=== PATIENT | female | born 1935 | race Caucasian/White ===

== ENCOUNTER 2020-04-17 09:18 | Observation (INO) | payer MEDICARE, SELFPAY ==
[2020-04-17] VITALS (12 sets, daily range): BP systolic 124–185; BP diastolic 45–64; PULSE 58–65; RESP 16–20; TEMP 36.8–37.9; O2SAT 92–97; BMI 24.1
--- NOTE | ~2020-04-17 | CT_ITS ---
EXAMINATION: CT abdomen pelvis wo con DATE: 04/17/2020 12:06 INDICATION: Abdominal pain and vomiting TECHNIQUE: Computed tomography (CT) of the abdomen and pelvis was performed without intravenous contr ast. The dose-length product (DLP) was 319.28 mGy-cm. Automated exposure control and iterative recons truction technique were employed. COMPARISON: 11/01/2015 FINDINGS: There are patchy opacities of the visualized lung bases. The heart size is normal. Punctate calcifications in otherwise normal appearing liver and spleen likely represent healed granulomatous disease. The pancreas and adrenal glands are normal. The gallbladder is surgically absent. There is m ild enlargement of the common bile duct and central intrahepatic ducts which is likely due to post ch olecystectomy state. A 1.9 cm cyst is present in the right kidney. There is scarring in the anterior aspect of the left mid kidney. There is calcified atherosclerosis of the aorta and many of the other arteries. No pathologically enlarged abdominal or pelvic lymph nodes are identified. There is no free intraperitoneal gas or evidence of bowel obstruction. There are surgical changes of right ileocolic anastomosis at the mid transverse colon. Colonic diverticulosis is present without evidence of divert iculitis. There is severe lumbar spondylosis. IMPRESSION: 1. Patchy opacities of the visualized lung bases, consistent with pneumonia. No acute abnormality of the abdomen or pelvis. Reviewed, dictated and finalized at location A.
--- NOTE | 2020-04-17 10:00 | ED.NAVMDI ---
HPI - Nausea/Vomiting/Diarrhea General Chief complaint: Nausea/Vomiting/Diarrhea Stated complaint: covid positive/diarrhea Time Seen by Provider: 04/17/20 10:00 Source: patient and family Mode of arrival: ambulatory Limitations: no limitations History of Present Illness HPI Narrative: Patient is an 84-year-old female who presents for evaluation of nausea and diarrhea. Patient is also reporting some abdominal pain. She reports feeling diffusely weak all over. She states that she was diagnosed with COVID over a week ago and continues to have symptoms from this. Patient has abdominal pain throughout her abdomen. Pain is described as cramping in nature. She does report nausea. She does report decreased oral intake. She reports high fevers, she is denying any cough or shortness of breath. No rashes. No severe myalgias. Patient states that her primary care physician's office told her to come to the emergency department for assessment. Related Data Home Medications Medication Instructions Recorded Confirmed clorazepate dipotassium [Tranxene 7.5 mg PO BID PRN 04/17/20 T-Tab] Allergies Allergy/AdvReac Type Severity Reaction Status Date / Time Barbiturates Allergy Mild HIVES Verified 04/17/20 09:48 amlodipine Allergy Unknown Hives Verified 04/17/20 09:48 atorvastatin Allergy Unknown Hives Verified 04/17/20 09:48 cephalexin Allergy Unknown Hives Verified 04/17/20 09:48 codeine Allergy Unknown Hives Verified 04/17/20 09:48 denosumab Allergy Unknown Hives Verified 04/17/20 09:48 erythromycin base Allergy Unknown Hives Verified 04/17/20 09:48 Iodinated Contrast Media Allergy Unknown Hives Verified 04/17/20 09:48 meperidine Allergy Unknown Hives Verified 04/17/20 09:48 morphine Allergy Unknown Hives Verified 04/17/20 09:48 nitrofurantoin Allergy Unknown Hives Verified 04/17/20 09:48 pravastatin Allergy Unknown Hives Verified 04/17/20 09:48 shellfish derived Allergy Unknown Hives Verified 04/17/20 09:48 Sulfa (Sulfonamide Allergy Unknown Hives Verified 04/17/20 09:48 Antibiotics) sulfanilamide Allergy Unknown Hives Verified 04/17/20 09:48 tetracycline Allergy Unknown Hives Verified 04/17/20 09:48 warfarin Allergy Unknown Hives Verified 04/17/20 09:48 Contrast Media Allergy Severe Hives Uncoded 04/17/20 09:48 SULFA Allergy Severe HIVES Uncoded 04/17/20 09:48 IODINE Allergy Unknown EDEMA, Uncoded 04/17/20 09:48 HIVES SHELLFISH Allergy Unknown EDEMA, Uncoded 04/17/20 09:48 HIVES Review of Systems Review of Systems: Narrative: CONSTITUTIONAL: Reports fever and chills EYES: Denies visual changes, redness, or discharge. ENT: Denies rhinorrhea, congestion, sore throat, or otalgia. CARDIOVASCULAR: Denies chest pain, palpitations, or edema. RESPIRATORY: Denies cough or dyspnea. GASTROINTESTINAL: Denies abdominal pain, nausea, vomiting, or diarrhea. GENITOURINARY: Denies dysuria or hematuria. SKIN: Denies rash or itching. MUSCULOSKELETAL: Denies back pain, joint pain, or myalgia. NEUROLOGIC: Denies headache, numbness, or weakness. PSYCHIATRIC: Denies anxiety or depression. [facility] Social History Social History Smoking status: Smoker, status unknown Alcohol intake: never Course Vital Signs Vital signs: Vital Signs Pulse Rate 65 04/17/20 09:28 Respiratory Rate 20 04/17/20 09:28 Blood Pressure 143/49 H 04/17/20 09:28 Pulse Oximetry 97 04/17/20 09:28 Pulse Rate 58 L 04/17/20 11:40 Respiratory Rate 20 04/17/20 11:40 Blood Pressure 146/52 H 04/17/20 11:40 Pulse Oximetry 95 04/17/20 11:40 MDM - Nausea/Vomiting/Diarrhea MDM Narrative Medical decision making narrative: Patient presenting for evaluation of weakness, diarrhea in the setting of recently diagnosed COVID infection. At the time of assessment, ABCs are intact and vital signs are stable. Physical exam is relatively noncontributory. No severe abdominal pain on exam. No focal
[2020-04-17] MEDS: ONDANSETRON INJ 4 MG/2 ML VIAL IV PUSH (11:10)
[2020-04-17] MEDS: SODIUM CHLORIDE 0.9% IV 1,000 ML 999 ML IV CONT (11:10)
[2020-04-17 11:37] LABS: Hematocrit 33.5 % (37.0-47.0); Hemoglobin 11.3 g/dL (12.0-15.0); Immature Granulocyte Absolute 0.04 K/mm3 (0.00-0.031); Immature Granulocyte Percent A 0.9 % (0-0.5); Lymphocytes Absolute Auto 0.54 K/mm3 (0.9-3.2); Lymphocytes Percent Auto 12.7 % (18.3-44.2); Mean Corpuscular HGB Conc 33.7 g/dl (32-36); Mean Corpuscular Volume 91.8 fl (80-100); Mean Platelet Volume 10.7 fl (7.4-10.4); Monocytes Absolute Auto 0.2 K/mm3 (0.1-0.6); Monocytes Percent Auto 4.2 % (2.6-8.5); Neutrophils Absolute Auto 3.5 K/mm3 (1.3-6.7); Neutrophils Percent Auto 82.2 % (45.5-73.1); Platelet Count Result 242 k/mm3 (150-375); Red Blood Count 3.65 M/mm3 (4.2-5.4); Red Cell Distribution Width 12.7 % (11.5-14.5); White Blood Count 4.3 K/mm3 (4.5-10.0)
[2020-04-17 11:49] LABS: Alanine Aminotransferase 18 U/L (4-35); Albumin Level 3.5 g/dL (3.5-5.1); Alkaline Phosphatase 29 U/L (38-126); Anion Gap 9 mmol/L (8-16); Aspartate Amino Transferase 53 U/L (14-36); Bilirubin,Total 0.6 mg/dL (0.2-1.3); Blood Urea Nitrogen 50 mg/dL (7-17); Calcium 8.8 mg/dL (8.4-10.2); Carbon Dioxide 30 mmol/L (22-30); Chloride 94 mmol/L (98-107); Estimated CRCL calculation 12 ml/min; Estimated Glomerular Filt Rate 15; Glucose 108 mg/dL (65-105); Lipase 324 U/L (23-300); Potassium 3.3 mmol/L (3.4-5.0); Sodium 133 mmol/L (137-145)
--- NOTE | 2020-04-17 14:34 | PM.IMHP ---
H&P: HPI History of Present Illness Date/Time: 04/17/20 14:34 Chief complaint: Weakness, COVID, Acute Kidney Injury Narrative: Norma Kinney is a 84 year old female with recent COVID-19 pneumonia, hypertension, hypothyroid, stage 3 kidney disease, anxiety who presented emergency room for weakness, nausea and diarrhea. Patient states that she got sick about 3 weeks ago when her neighbor, who was COVID positive, decided to come over for a visit. Since that time, she has had subjective fevers, dry cough, poor appetite, and significant weakness. She was slow to recover and about 2-3 weeks later decided to call her primary care doctor who tested her for COVID-19 and she was positive. Since then she has had no energy and her legs feel like Jell-O. she has been having diarrhea since then but she cannot quantify it. She has only had 1 bowel movement today. She has history of C diff in 2016 but has not had any antibiotics recently. She has some abdominal cramping with this diarrhea but no vomiting. She hardly drinks anything because of her weakness and abdominal pain. She denies any blood, black tarry substances, or mucus in her stool. Her cough has improved and she denies shortness of breath at rest or with movements. She usually walks at home without assistive devices and does not need physical therapy. She denies chest pain, leg swelling, rashes, wounds, numbness or tingling to any part of her body, or focal weaknesses. She says she is hardly peeing but does not think she has any dysuria. Review of Systems Review of Systems: All systems reviewed & are unremarkable except as noted in HPI and below [facility] Past Medical History Medical History (Updated 04/17/20 @ 14:41 by Karishma Briceno PA-C) Anxiety disorder, unspecified Essential (primary) hypertension Hyperlipidemia, unspecified Hypothyroidism Irritable bowel syndrome with diarrhea Neuropathy Stage 3 chronic kidney disease Vitamin B12 deficiency Vitamin D deficiency Surgical History Surgical History (Updated 04/17/20 @ 15:31 by Karishma Briceno PA-C) History of appendectomy History of partial hysterectomy History of tonsillectomy Family History Family History Father Hypertension Carcinoma of colon Malignant neoplasm of prostate Sibling Hypertension Carcinoma of colon Mother Family history of malignant neoplasm of ovary Other Family history of kidney disease Social History Social History (Updated 04/17/20 @ 15:32 by Karishma Briceno PA-C) Social History: Patient does not drink, smoke, smoke marijuana, or do drugs. 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 She wishes to be a full code. In the event that she cannot make her own decisions she designates her Ed as her surrogate decision maker Smoking status: Smoker, status unknown Alcohol intake: never Meds Home Medications and Allergies Home Medications Medication Instructions Recorded Confirmed Type verapamil 120 mg 24 hr 120 mg PO DAILY #30 cap 07/08/19 Rx capsule,extended release fenofibrate nanocrystallized 145 145 mg PO DAILY #90 tablet 11/10/19 Rx mg tablet levothyroxine 75 mcg tablet 75 mcg PO DAILY #90 tablet 02/15/20 Rx hydrochlorothiazide 12.5 mg tablet 12.5 mg PO DAILY #30 tablet 02/17/20 Rx metoprolol succinate 200 mg 200 mg PO DAILY #30 tablet 02/17/20 Rx tablet,extended release 24 hr losartan 100 mg tablet 50 mg PO DAILY #30 tablet 03/02/20 Rx hydralazine 50 mg tablet 50 mg PO QID #120 tablet 03/07/20 Rx tizanidine 2 mg tablet 2 mg PO BID PRN #60 tablet 03/15/20 Rx dicyclomine 10 mg capsule See Rx Instructions .ROUTE 03/24/20 Rx .COMPLEX #60 cap clorazepate dipotassium [Tranxene 7.5 mg PO BID PRN 04/17/20 History T-Tab] Allergies Allergy/AdvReac Type Severity Reaction Status Date / Time Barbiturates Allergy Mild HIVES Verified 04/17/20 09:48 amlodipine Allergy Unknow
[2020-04-17] MEDS: ACETAMINOPHEN 325 MG TABLET 650 MG PO (16:03)
[2020-04-17] MEDS: SODIUM CHLORIDE 0.9% IV 1,000 ML 100 ML IV CONT (16:04)
--- NOTE | 2020-04-17 16:06 | ADMGEN ---
This patient, oNrma Kinney, was admitted to 3 [facility] Room 328-01. Patient/family oriented to hospital policies and general routines including ID bracelet, bed and alarms, visiting hours, pain management, procedures, bathroom and other care routines, personal items, smoking policy, room service/diet, and visiting hours. Valuables list has been completed. Information on how to activate the Rapid Response Team has been discussed. Patient/Family are encouraged to report perceived risks to care and to ask questions if they do not understand what they are told or what they should do. Report recieved from Evelyn in emergency department at [id number]
[2020-04-17] MEDS: POTASSIUM CHLORIDE 20 MEQ TABLET 40 MEQ PO (16:08)
[2020-04-18] VITALS (14 sets, daily range): BP systolic 119–178; BP diastolic 37–62; PULSE 57–77; RESP 16–20; TEMP 36.7–38.4; O2SAT 91–96
[2020-04-18] MEDS: SODIUM CHLORIDE 0.9% IV 1,000 ML 100 ML IV CONT ×2 (01:25→17:16)
[2020-04-18] MEDS: ACETAMINOPHEN 325 MG TABLET 650 MG PO ×3 (03:30→19:52)
[2020-04-18 06:20] LABS: Hematocrit 30.8 % (37.0-47.0); Hemoglobin 10.3 g/dL (12.0-15.0); Mean Corpuscular HGB Conc 33.4 g/dl (32-36); Mean Corpuscular Hemoglobin 30.6 pg (26-34); Mean Corpuscular Volume 91.4 fl (80-100); Mean Platelet Volume 10.3 fl (7.4-10.4); Platelet Count Result 237 k/mm3 (150-375); Red Blood Count 3.37 M/mm3 (4.2-5.4); Red Cell Distribution Width 12.7 % (11.5-14.5)
[2020-04-18 06:42] LABS: Anion Gap 6 mmol/L (8-16); Blood Urea Nitrogen 38 mg/dL (7-17); Calcium 7.8 mg/dL (8.4-10.2); Carbon Dioxide 22 mmol/L (22-30); Chloride 108 mmol/L (98-107); Estimated CRCL calculation 21 ml/min; Estimated Glomerular Filt Rate 29; Glucose 96 mg/dL (65-105); Magnesium 1.8 mg/dL (1.6-2.3); Phosphorus 2.4 mg/dL (2.5-4.5); Potassium 3.9 mmol/L (3.4-5.0); Sodium 136 mmol/L (137-145)
[2020-04-18] MEDS: VERAPAMIL HCL ER 120 MG TABLET PO (09:11)
[2020-04-18] MEDS: LEVOTHYROXINE SODIUM 75 MCG TABLET PO (09:11)
[2020-04-18] MEDS: DICYCLOMINE HCL 10 MG CAPSULE 20 MG PO (09:11)
[2020-04-18] MEDS: hydroCHLOROthiazide 12.5 MG CAPSULE PO (09:11)
[2020-04-18] MEDS: hydrALAZINE HCL 50 MG TABLET PO ×4 (09:11→20:13)
[2020-04-18] MEDS: METOPROLOL SUCCINATE EXT REL 100 MG TABCR 200 MG PO (09:12)
[2020-04-18] MEDS: LOSARTAN POTASSIUM 50 MG TABLET PO (09:12)
[2020-04-18] MEDS: ENOXAPARIN 30 MG/0.3 ML SYRINGE SUB-Q (10:53)
--- NOTE | 2020-04-18 11:35 | PM.IMPN ---
Progress Note: A&P Assessment and Plan (1) Nausea vomiting and diarrhea: Code(s): R11.2 - Nausea with vomiting, unspecified; R19.7 - Diarrhea, unspecified Status: Acute Assessment and Plan: -----likely secondary to COVID-19 pneumonia as well as IBS. Will continue symptomatic support. She has a hx of cdiff in 2016 but has not had any recent abx use. Lipase minimally elevated likely reactionary to acute illness. I do not suspect pancreatitis at this time. CT of the abdomen pelvis negative for acute abdominal process. Cdiff appears less likely since she has no leukocytosis, no recent abx use, and normal abdominal CT. No testing or treating indicated at this time. I am awaiting a UA and I have spoken with MIMI Wilde about obtaining it through straight cath to ensure she does not have a UTI from her diarrhea. (2) Acute kidney injury superimposed on chronic kidney disease: Code(s): N17.9 - Acute kidney failure, unspecified; N18.9 - Chronic kidney disease, unspecified Status: Acute Assessment and Plan: ----- Creatinine improved today 1.7 down from 2.9 yesterday. her last creatinine in our system was 1.4 in February.patient has chronic kidney disease at baseline but creatinine and BUN more elevated than normal. Suspect due to decreased appetite and diarrhea secondary to COVID. Still awaiting UA But no mention of cystitis on abdominal pelvis CT. Will continue gentle IV hydration and monitor for signs of fluid overload and reassess fluids tomorrow depending on her kidney function. CT of the abdomen pelvis does not show any abnormalities. (3) Dehydration: Code(s): E86.0 - Dehydration Status: Acute Assessment and Plan: -----secondary to COVID, continue IV hydration with goal to transition to oral hydration hopefully tomorrow. (4) COVID-19: Code(s): U07.1 - COVID-19 Status: Acute Assessment and Plan: -----she tested positive 04/15/20 but symptoms started she thinks about 3 weeks ( She was unsure of the time) ago when a COVID + neighbor came over for a visit. She didn't decide to get tested until about 3 weeks later after symptoms were slow to resolve. Continue precautions. She is currently on room air without any use of oxygen and therefore does not qualify for dexamethasone or Remdesivir. Will monitor for hypoxia, continue isolation. Last fever 04/18 at 4am 101.1. (5) Weakness: Code(s): R53.1 - Weakness Status: Acute Assessment and Plan: ----- continue PT and OT. Secondary to dehydration and COVID-19 pneumonia. (6) Anxiety disorder, unspecified: Code(s): F41.9 - Anxiety disorder, unspecified Status: Acute Assessment and Plan: -----chronic, will continue clorazepate. (7) Essential (primary) hypertension: Code(s): I10 - Essential (primary) hypertension Status: Acute Assessment and Plan: -----last blood pressure last blood pressure 119/48. Continue losartan, metoprolol,verapamil, and hydralazine. (8) Hypothyroidism: Qualifiers: Hypothyroidism type: acquired Qualified Code(s): E03.9 - Hypothyroidism, unspecified Code(s): E03.9 - Hypothyroidism, unspecified Status: Acute Assessment and Plan: -----continue levothyroxine, TSH WNL (9) Leukopenia: Code(s): D72.819 - Decreased white blood cell count, unspecified Status: Acute Assessment and Plan: -----likely due to viral illness. Monitor (10) Transaminitis: Code(s): R74.0 - Nonspecific elevation of levels of transaminase and lactic acid dehydrogenase [LDH] Status: Acute Assessment and Plan: -----likely due to viral illness. Monitor Time Spent With Patient Time with patient: 25 - 35 minutes Subjective Date/time seen: 04/18/20 11:35 Interval history: Pt is a 84-year-old female COVID-19 positive here for SHOSHANA. Patient was seen today and
[2020-04-18 14:20] LABS: Add Urine Microscopic? YES; Appearance Urine Clear (Clear); Bacteria Urine Trace /hpf; Bilirubin Urine Negative (Negative); Blood Urine Negative (Negative); Color Urine Yellow (Yellow); Glucose Urine UA Negative (Negative); Ketones Urine Negative (Negative); Leukocyte Esterase Ur Trace LEU/UL (Negative); Mucus Urine Rare /lpf; Nitrate Urine Negative (Negative); Protein Urine Negative (Negative); RBC Urine 0-2 /hpf (0-2); Specific Grav Ur 1.014 (1.001-1.035); Squamous Epithelial Cell Urine Occasional /hpf (Few); Urobilinogen Urine Negative mg/dL (<2.0)
[2020-04-19] VITALS (11 sets, daily range): BP systolic 153–191; BP diastolic 48–84; PULSE 60–68; RESP 16–18; TEMP 36.5–39.3; O2SAT 94–98
[2020-04-19] MEDS: SODIUM CHLORIDE 0.9% IV 1,000 ML 100 ML IV CONT (04:41)
[2020-04-19] MEDS: LEVOTHYROXINE SODIUM 75 MCG TABLET PO (06:05)
[2020-04-19 06:15] LABS: Hematocrit 31.8 % (37.0-47.0); Hemoglobin 10.4 g/dL (12.0-15.0); Mean Corpuscular HGB Conc 32.7 g/dl (32-36); Mean Corpuscular Hemoglobin 30.5 pg (26-34); Mean Corpuscular Volume 93.3 fl (80-100); Mean Platelet Volume 10.1 fl (7.4-10.4); Platelet Count Result 248 k/mm3 (150-375); Red Blood Count 3.41 M/mm3 (4.2-5.4); Red Cell Distribution Width 12.9 % (11.5-14.5); White Blood Count 4.4 K/mm3 (4.5-10.0)
[2020-04-19 06:48] LABS: Alanine Aminotransferase 13 U/L (4-35); Albumin Level 2.8 g/dL (3.5-5.1); Alkaline Phosphatase 23 U/L (38-126); Anion Gap 3 mmol/L (8-16); Aspartate Amino Transferase 40 U/L (14-36); Bilirubin,Total 0.4 mg/dL (0.2-1.3); Blood Urea Nitrogen 25 mg/dL (7-17); Carbon Dioxide 26 mmol/L (22-30); Chloride 109 mmol/L (98-107); Estimated CRCL calculation 25 ml/min; Estimated Glomerular Filt Rate 36; Glucose 87 mg/dL (65-105); Magnesium 1.8 mg/dL (1.6-2.3); Phosphorus 2.3 mg/dL (2.5-4.5); Potassium 4.4 mmol/L (3.4-5.0); Sodium 138 mmol/L (137-145)
[2020-04-19] MEDS: VERAPAMIL HCL ER 120 MG TABLET PO (08:11)
[2020-04-19] MEDS: DICYCLOMINE HCL 10 MG CAPSULE 20 MG PO (08:11)
[2020-04-19] MEDS: hydrALAZINE HCL 50 MG TABLET PO ×4 (08:11→19:39)
[2020-04-19] MEDS: ENOXAPARIN 30 MG/0.3 ML SYRINGE SUB-Q (08:11)
[2020-04-19] MEDS: LOSARTAN POTASSIUM 50 MG TABLET PO (08:12)
[2020-04-19] MEDS: METOPROLOL SUCCINATE EXT REL 100 MG TABCR 200 MG PO (08:12)
[2020-04-19] MEDS: hydroCHLOROthiazide 12.5 MG CAPSULE PO (08:12)
--- NOTE | 2020-04-19 11:41 | PM.IMPN ---
Progress Note: A&P Assessment and Plan (1) Nausea vomiting and diarrhea: Code(s): R11.2 - Nausea with vomiting, unspecified; R19.7 - Diarrhea, unspecified Status: Acute Assessment and Plan: May be secondary to COVID-19 pneumonia as well as IBS. Will continue symptomatic support. She has history of C diff x 3 in the past, last being in 2016. No recent antibiotic use. Will send stool specimen for culture given that she is still having quite a bit of loose stool already this AM. CT abdomen/pelvis with no evidence for any acute process to explain her symptoms. (2) Acute kidney injury superimposed on chronic kidney disease: Code(s): N17.9 - Acute kidney failure, unspecified; N18.9 - Chronic kidney disease, unspecified Status: Acute Assessment and Plan: Creatinine improved today 1.4 down from 2.9 on arrival. Patient has chronic kidney disease at baseline but creatinine and BUN more elevated than normal. Suspect due to decreased appetite and diarrhea secondary to COVID. Decrease IV fluids and trend renal function. (3) Dehydration: Code(s): E86.0 - Dehydration Status: Acute Assessment and Plan: [place] to be secondary to COVID-19 and decreased appetite. Decrease IV fluids and monitor. (4) COVID-19: Code(s): U07.1 - COVID-19 Status: Acute Assessment and Plan: She tested positive 04/15/20 but symptoms started she thinks about 3 weeks ago (she was unsure of the time) when a COVID + neighbor came over for a visit. She didn't decide to get tested until about 3 weeks later after symptoms were slow to resolve. Continue precautions. She is currently on room air without any use of oxygen and therefore does not qualify for dexamethasone or Remdesivir. Will monitor for hypoxia, continue isolation. Febrile this afternoon. (5) Weakness: Code(s): R53.1 - Weakness Status: Acute Assessment and Plan: Suspect secondary to COVID and dehydration/diarrhea. Continue PT/OT. (6) Anxiety disorder, unspecified: Code(s): F41.9 - Anxiety disorder, unspecified Status: Chronic Assessment and Plan: Chronic, stable. Continue home medications. (7) Essential (primary) hypertension: Code(s): I10 - Essential (primary) hypertension Status: Chronic Assessment and Plan: Blood pressures elevated today. Continue home regimen with losartan, metoprolol,verapamil, and hydralazine. (8) Hypothyroidism: Qualifiers: Hypothyroidism type: acquired Qualified Code(s): E03.9 - Hypothyroidism, unspecified Code(s): E03.9 - Hypothyroidism, unspecified Status: Chronic Assessment and Plan: Continue levothyroxine, TSH within normal limits. (9) Leukopenia: Code(s): D72.819 - Decreased white blood cell count, unspecified Status: Acute Assessment and Plan: Suspect related to viral illness. Will monitor. (10) Transaminitis: Code(s): R74.0 - Nonspecific elevation of levels of transaminase and lactic acid dehydrogenase [LDH] Status: Acute Assessment and Plan: Mild and suspect related to viral illness. Can be monitored outpatient after discharge. Subjective Date/time seen: 04/19/20 11:15 Interval history: Ms. Kinney is an 84yo F admitted for diarrhea, COVID-19. She reports feeling okay today however notes she has had 4 episodes of loose stool so far this morning. No blood that she notices. She thinks the bowel movements are becoming more formed. She reports she
[2020-04-19] MEDS: ACETAMINOPHEN 325 MG TABLET 650 MG PO (15:12)
[2020-04-19] MEDS: ONDANSETRON INJ 4 MG/2 ML VIAL IV PUSH (15:54)
[2020-04-19] MEDS: SODIUM CHLORIDE 0.9% IV 1,000 ML 70 ML IV CONT (19:39)
[2020-04-20] VITALS (7 sets, daily range): BP systolic 132–188; BP diastolic 57–71; PULSE 65–80; RESP 16–20; TEMP 36.7–36.9; O2SAT 93–95
[2020-04-20] MEDS: hydrALAZINE HCL 20 MG/ML VIAL 10 MG IV PUSH (01:27)
[2020-04-20] MEDS: cloNIDine HCL 0.1 MG TABLET PO (03:57)
[2020-04-20] MEDS: LEVOTHYROXINE SODIUM 75 MCG TABLET PO (05:30)
[2020-04-20 05:58] LABS: Eosinophils Percent Auto 0.3 % (0-4.4); Hematocrit 28.6 % (37.0-47.0); Hemoglobin 9.4 g/dL (12.0-15.0); Immature Granulocyte Absolute 0.03 K/mm3 (0.00-0.031); Immature Granulocyte Percent A 0.8 % (0-0.5); Lymphocytes Absolute Auto 0.57 K/mm3 (0.9-3.2); Lymphocytes Percent Auto 14.3 % (18.3-44.2); Mean Corpuscular HGB Conc 32.9 g/dl (32-36); Mean Corpuscular Hemoglobin 29.9 pg (26-34); Mean Corpuscular Volume 91.1 fl (80-100); Mean Platelet Volume 9.8 fl (7.4-10.4); Monocytes Absolute Auto 0.1 K/mm3 (0.1-0.6); Monocytes Percent Auto 3.3 % (2.6-8.5); Neutrophils Absolute Auto 3.2 K/mm3 (1.3-6.7); Neutrophils Percent Auto 81.3 % (45.5-73.1); Platelet Count Result 247 k/mm3 (150-375); Red Blood Count 3.14 M/mm3 (4.2-5.4); Red Cell Distribution Width 12.7 % (11.5-14.5)
[2020-04-20 06:14] LABS: Alanine Aminotransferase 12 U/L (4-35); Albumin Level 2.6 g/dL (3.5-5.1); Alkaline Phosphatase 25 U/L (38-126); Anion Gap 4 mmol/L (8-16); Aspartate Amino Transferase 35 U/L (14-36); Bilirubin,Total 0.4 mg/dL (0.2-1.3); Blood Urea Nitrogen 13 mg/dL (7-17); Calcium 7.7 mg/dL (8.4-10.2); Carbon Dioxide 25 mmol/L (22-30); Chloride 107 mmol/L (98-107); Estimated CRCL calculation 35 ml/min; Estimated Glomerular Filt Rate 53; Glucose 94 mg/dL (65-105); Magnesium 1.6 mg/dL (1.6-2.3); Potassium 3.3 mmol/L (3.4-5.0); Sodium 136 mmol/L (137-145)
[2020-04-20] MEDS: DICYCLOMINE HCL 10 MG CAPSULE 20 MG PO (08:32)
[2020-04-20] MEDS: POTASSIUM CHLORIDE 20 MEQ TABLET 40 MEQ PO (08:32)
[2020-04-20] MEDS: ENOXAPARIN 30 MG/0.3 ML SYRINGE SUB-Q (08:33)
[2020-04-20] MEDS: hydrALAZINE HCL 50 MG TABLET 100 MG PO ×2 (08:33→12:56)
[2020-04-20] MEDS: hydroCHLOROthiazide 12.5 MG CAPSULE PO (08:33)
[2020-04-20] MEDS: METOPROLOL SUCCINATE EXT REL 100 MG TABCR 200 MG PO (08:34)
[2020-04-20] MEDS: LOSARTAN POTASSIUM 50 MG TABLET PO (08:34)
[2020-04-20] MEDS: VERAPAMIL HCL ER 120 MG TABLET PO (08:35)
[2020-04-20] MEDS: MAGNESIUM OXIDE 400 MG TABLET PO (10:37)
[2020-04-20] MEDS: SODIUM CHLORIDE 0.9% IV 1,000 ML 70 ML IV CONT (12:56)
--- NOTE | 2020-04-20 13:35 | PCOTNOTE ---
Attempted to see patient this pm, however patient declined stating, I'm hoping to go home today. Now, I could see if I needed help with something, but I can do it all myself.
--- NOTE | 2020-04-20 18:45 | PM.DS ---
DS: Admitting Diagnosis Admitting Diagnosis Admitting Diagnosis: Weakness, COVID, Acute Kidney Injury DS: Discharge Diagnosis Discharge Diagnosis (1) Nausea vomiting and diarrhea: Code(s): R11.2 - Nausea with vomiting, unspecified; R19.7 - Diarrhea, unspecified Status: Acute Assessment and Plan: Date of Admission: 04/17/20 Date of Discharge/DOS: 04/20/20 Ms. Kinney is a pleasant 84yo F with history of hypertension, hypothyroidism, anxiety, reported history of IBS, recently tested positive for COVID-19 who presented to the ED for evaluation of diarrhea. CT abdomen/pelvis demonstrated no acute abnormality of the abdomen to explain her symptoms. It is felt at this time that her known IBD may be exacerbated by viral syndrome of COVID. She was treated supportively with IV hydration. Creatinine as high as 2.9 on arrival which improved to 1.0 on day of discharge. She was not hypoxic, was tolerating room air with good oxygen saturations therefore did not qualify for remdesivir or dexamethasone therapy for COVID-19. Her diarrhea improved and she was eager for discharge. She was hemodynamically stable for discharge 04/20/20 with instructions to follow up with Dr Humphreys's office. May be secondary to COVID-19 pneumonia as well as IBS. She has history of C diff x 3 in the past, last being in 2016. No recent antibiotic use. Stool is partly formed and not consistent with C diff at this time. CT abdomen/pelvis negative for acute process. (2) Acute kidney injury superimposed on chronic kidney disease: Code(s): N17.9 - Acute kidney failure, unspecified; N18.9 - Chronic kidney disease, unspecified Status: Acute Assessment and Plan: Creatinine improved today 1.0 down from 2.9 on arrival. Patient has chronic kidney disease at baseline but creatinine and BUN more elevated than normal. Suspect due to decreased appetite and diarrhea secondary to COVID. (3) Dehydration: Code(s): E86.0 - Dehydration Status: Acute Assessment and Plan: See above. (4) COVID-19: Code(s): U07.1 - COVID-19 Status: Acute Assessment and Plan: She tested positive 04/15/20 but symptoms started she thinks about 3 weeks ago (she was unsure of the time) when a COVID + neighbor came over for a visit. She decided to get tested about 3 weeks later after symptoms were slow to resolve. Continue precautions. She is currently on room air without any use of oxygen and therefore does not qualify for dexamethasone or Remdesivir. Tylenol for fevers. (5) Weakness: Code(s): R53.1 - Weakness Status: Acute Assessment and Plan: Suspect secondary to COVID and dehydration/diarrhea. Worked well with PT/OT. (6) Anxiety disorder, unspecified: Code(s): F41.9 - Anxiety disorder, unspecified Status: Chronic Assessment and Plan: Chronic, stable. Continue home medications. (7) Essential (primary) hypertension: Code(s): I10 - Essential (primary) hypertension Status: Chronic Assessment and Plan: Blood pressures elevated, more stable day of discharge last 149/64. Continue home regimen with losartan, metoprolol,verapamil, and hydralazine. (8) Hypothyroidism: Qualifiers: Hypothyroidism type: acquired Qualified Code(s): E03.9 - Hypothyroidism, unspecified Code(s): E03.9 - Hypothyroidism, unspecified Status: Chronic Assessment and Plan: Continue levothyroxine, TSH within normal limits. (9) Leukopenia: Code(s): D72.819 - Decreased white blood cell count, uns
--- NOTE | 2020-04-25 13:00 | PC.NURSE ---
Stool cx is negative.
== END 2020-04-20 15:52 | disposition home or self-care (01) ==
LOC: ANHED 13:50 → ANH3MEDSUR 15:09
PROVIDERS: Physician Assistant; Admitting Provider Family Medicine; Emergency Provider Emergency Medicine; PCP Family Medicine; Visit Provider Physician Assistant
DX: U07.1 COVID-19 (principal); R11.2 Nausea with vomiting, unspecified; R19.7 Diarrhea, unspecified; R53.1 Weakness; N17.9 Acute kidney failure, unspecified; N18.9 Chronic kidney disease, unspecified; E86.0 Dehydration; I10 Essential (primary) hypertension; E03.9 Hypothyroidism, unspecified; F41.9 Anxiety disorder, unspecified; D72.819 Decreased white blood cell count, unspecified; R74.0 Nonspecific elevation of levels of transaminase and lactic acid dehydrogenase [LDH]
CPT/HCPCS: 36415; 74176; 80048; 80053; 80076; 81001; 83690; 83735; 84100; 84443; 85025; 85027; 87015; 87045; 87046; 87269; 87272; 87324; 87427; 89055; 96361; 96372; 96374; 96375; 97110; 97116; 97161; 97165; 97530; 99285; A9270; G0378; J0360; J1650; J2405; J7030